=== PATIENT | male | born 1990 | race Caucasian/White ===

== ENCOUNTER 2020-04-25 06:35 | Emergency (ER) | payer SELFPAY ==
[~2020-04-25] VITALS: Ht 170.2 cm; Wt 56.7 kg
[2020-04-25 06:41] VITALS: Ht 170.2 cm; Wt 56.7 kg
[2020-04-25] MEDS ORDERED: KEFLEX500 MG PO (08:07)
[2020-04-25] MEDS ORDERED: ACETAMINOPHEN500 M1 PO (08:11)
[2020-04-25] MEDS ORDERED: CYCLOBENZAPRINE10 MG PO (08:11)
[2020-04-25] MEDS ORDERED: IBUPROFEN800 MG PO (08:11)
[2020-04-25 08:22] VITALS: BP 132/80
== END 2020-04-25 08:23 | disposition home or self-care (01) ==
LOC: D.ER 06:35
DX: S09.90XA Unspecified injury of head, initial encounter (principal); R51 Headache; S01.01XA Laceration without foreign body of scalp, initial encounter; W19.XXXA Unspecified fall, initial encounter; Y93.9 Activity, unspecified; Y92.9 Unspecified place or not applicable